=== PATIENT | male | born 1990 | race Two or more races ===

== ENCOUNTER 2019-06-15 19:57 | Emergency (ER) | payer OTHER ==
[~2019-06-15] VITALS: Ht 175.3 cm; Wt 70.3 kg
--- NOTE | 2019-06-15 22:11 | PHYS DOC ---
Past Medical History Past Medical History: Cancer, Other Additional Past Medical Histor: Testicular cancer w/ Bone Mets Past Surgical History: Other Additional Past Surgical Histo: Right Orchidectomy Alcohol Use: Occasionally Drug Use: None Adult General Chief Complaint Chief Complaint: UPPER EXTREMITY SWELLING HPI HPI 28-year-old male presents to the emergency department with right upper extremity pain and redness appreciated to right forearm. He denies any fevers. He states he's received chemotherapy most recently in his left arm however 2 weeks ago in his right arm. Patient states he gets treatments in [place] at the cancer center. Patient denies any nausea, vomiting, chest pain, shortness of breath Review of Systems Review of Systems Constitutional: Denies fever or chills [] Respiratory: Denies cough or shortness of breath [] Cardiovascular: No additional information not addressed in HPI [] GI: Denies abdominal pain, nausea, vomiting, bloody stools or diarrhea [] Integument: erythema, cellulitis changes[] Neurologic: Denies headache, focal weakness or sensory changes [] All other systems were reviewed and found to be within normal limits, except as documented in this note. Allergies Allergies Allergies Coded Allergies Type Severity Reaction Last Updated Verified No Known Drug Allergies 06/15/19 No Physical Exam Physical Exam Constitutional: Well developed, well nourished, no acute distress, non-toxic appearance. [] HENT: Normocephalic, atraumatic, bilateral external ears normal, oropharynx moist, no oral exudates, nose normal. [] Eyes: PERRLA, EOMI, conjunctiva normal, no discharge. [] Cardiovascular:Heart rate regular rhythm, no murmur [] Lungs & Thorax: Bilateral breath sounds clear to auscultation [] Abdomen: Bowel sounds normal, soft, no tenderness, no masses, no pulsatile ma sses. [] Skin: Warm, redness appreciated to right forearm - concern for thrombophlebitis[] Extremities: No tenderness, no edema. [] Neurologic: Alert and oriented X 3, no focal deficits noted. [] Psychologic: Affect normal, judgement normal, mood normal. [] Current Patient Data Vital Signs Vital Signs Date Time Temp Pulse Resp B/P (MAP) Pulse Ox O2 Delivery O2 Flow Rate FiO2 06/15/19 20:40 98.2 104 16 108/72 (84) 98 Room Air 98.2 EKG EKG [] Radiology/Procedures Radiology/Procedures [facility] [address] [place] [address] IMAGING REPORT Signed PATIENT: CAITLIN JIM ACCOUNT: [id number] : 1990 LOCATION: ER AGE: 28 SEX: M EXAM STATUS: REG ER ORD. PHYSICIAN: NORMA BROWNING MD REASON: ? clot - thrombophlebitis PROCEDURE: VENOUS UPPER EXTREMITY RIGHT VENOUS UPPER EXTREMITY RIGHT History: Thrombophlebitis. Right upper extremity pain and swelling. Comparison: None. Procedure: Color flow Doppler, Doppler spectral analysis, and 2D images are obtained with and without compression in the jugular vein, subclavian vein, axillary vein, brachial vein, radial vein, ulnar vein, and basilic and cephalic veins. Findings: There is normal color flow, augmentation, and compressibility of all visualized vein segments. No evidence of deep venous thrombus is present. Focal thrombus within the right mid forearm basilic vein. There is adjacent soft tissue swelling. IMPRESSION: 1. Right mid forearm basilic vein superficial thrombophlebitis. Electronically signed by: Apple Atkinson DO (06/15/2019 11:12 PM) [facility] DICTATED and SIGNED BY: APPLE ATKINSON DO DATE: 06/15/192311 [] Course & Med Decision Making Course & Med Decision Making Pertinent Labs and Imaging studies reviewed. (See chart for details) []28-year-old male presents to the emergency department with right upper extremity pain and redness appreciated to right forearm. He denies any fevers. He states he's received chemotherapy most recently in his left arm however 2 weeks ago in his right arm. Patient states he gets treatments in [place] at the cancer center. Patient denies any nausea, vomiting, chest pain, shortness of breath Dragon Disclaimer Dragon Disclaimer This electronic medical record was generated, in whole or in part, using a voice recognition dictation system. Departure Departure Impression: Primary Impression: Superficial thrombophlebitis Disposition: HOME, SELF-CARE Condition: IMPROVED Referrals: NO PCP (PCP) Patient Instructions: Phlebitis, [id number] Additional Instructions: Recommend follow up with PCP 3 - 5 days Return to the ER with worsening symptoms, intractable pain, fever, altered mental status Tylenol/Motrin as needed for pain Take antibiotics, bactrim ds 1 po BID x 7, ASA 81mg po daily Scripts Sulfamethoxazole/Trimethoprim (BACTRIM DS TABLET) 1 Each Tablet 1 TAB PO BID for infection, #14 TAB Prov: NORMA BROWNING MD 06/15/19 Problem Qualifiers Primary Impression: Superficial thrombophlebitis Superficial thrombophlebitis-Involved body area: upper extremity Laterality: right Qualified Codes: I80.8 - Phlebitis and thrombophlebitis of other sites NORMA BROWNING MD Jun 15, 2019 22:11
--- NOTE | 2019-06-15 23:16 | RAD ---
VENOUS UPPER EXTREMITY RIGHT History: Thrombophlebitis. Right upper extremity pain and swelling. Comparison: None. Procedure: Color flow Doppler, Doppler spectral analysis, and 2D images are obtained with and without compression in the jugular vein, subclavian vein, axillary vein, brachial vein, radial vein, ulnar vein, and basilic and cephalic veins. Findings: There is normal color flow, augmentation, and compressibility of all visualized vein segments. No evidence of deep venous thrombus is present. Focal thrombus within the right mid forearm basilic vein. There is adjacent soft tissue swelling. IMPRESSION: 1. Right mid forearm basilic vein superficial thrombophlebitis. Electronically signed by: Dariel Astorga DO (06/15/2019 11:12 PM) [facility]
[2019-06-15] MEDS ORDERED: SULF1TAB24 PO (23:42)
[2019-06-15 23:51] VITALS: BP 87/47
== END 2019-06-15 23:55 | disposition home or self-care (01) ==
LOC: ER 19:57
DX: I80.8 Phlebitis and thrombophlebitis of other sites (principal); Z85.47 Personal history of malignant neoplasm of testis; Z85.830 Personal history of malignant neoplasm of bone; Z92.21 Personal history of antineoplastic chemotherapy
CPT/HCPCS: 93971; 99284-25